=== PATIENT | male | born 1980 | race Caucasian/White ===

== ENCOUNTER 2021-04-23 19:17 | Emergency (ER) | payer SELFPAY ==
[2021-04-23 19:27] VITALS: PULSE 87; TEMP 97.8; BMI 31.3
[2021-04-23] MEDS ORDERED: ACETAMINOPHEN 500 MG TABLET (FP) PO ONE (20:35)
[2021-04-23] MEDS ORDERED: ACETAMINOPHEN 500 MG TABLET (FP) ONE (20:36)
[2021-04-23 21:25] VITALS: BP 146/91
== END 2021-04-23 22:13 | disposition home or self-care (01) ==
LOC: JERFT 19:17
DX: H60.392 Other infective otitis externa, left ear (principal)
CPT/HCPCS: 99283-25